=== PATIENT | female | born 1975 | race Caucasian/White ===

== ENCOUNTER 2019-12-07 09:53 | Outpatient (CLI) | payer BC ==
--- NOTE | 2019-12-08 11:03 | MMO ---
Bilateral MAMMO Bilat Diag [facility]. CLINICAL HISTORY: Patient is 44 years old and is seen for screening. The patient has the following family history of breast cancer: mother, at age 60. The patient has no personal history of cancer. The patient has a history of bilateral Implants in November,. VIEWS: The views performed were: bilateral craniocaudal with tomosynthesis and bilateral mediolateral oblique with tomosynthesis. This study has been interpreted with the assistance of computer-aided detection. MAMMOGRAM FINDINGS: The breasts are heterogeneously dense, which could obscure a lesion on mammography. There is a mass seen in the upper-outer region of the right breast. The mass is palpable and corresponds to a 2 cm cyst on US. There are no suspicious masses, suspicious calcifications, or new areas of architectural distortion. IMPRESSION: THERE IS NO MAMMOGRAPHIC EVIDENCE OF MALIGNANCY. A ROUTINE FOLLOW-UP MAMMOGRAM IN 1 YEAR IS RECOMMENDED. THE RESULTS OF THIS EXAM WERE SENT TO THE PATIENT. ACR BI-RADS Category 2 - Benign finding MAMMOGRAPHY NOTE: 1. A negative mammogram report should not delay a biopsy if a dominant of clinically suspicious mass is present. 2. Approximately 10% to 15% of breast cancers are not detected by mammography. 3. Adenosis and dense breasts may obscure an underlying neoplasm. Reported by: VICKEY HENDRICKSON MD Electonically Signed: [id number]
--- NOTE | 2019-12-08 11:29 | ULT ---
RIGHT BREAST ULTRASOUND: Date: 12/08/2019 HISTORY: Palpable mass in the right upper outer breast. FINDINGS: Correlation is made with mammogram of same date. Sonographic evaluation of the region of palpable concern between the 10 and 11 o'clock positions of t he right breast, 8 cm from the nipple, demonstrates a 2.0 cm cyst, corresponding the palpable and harjinder mographic finding. IMPRESSION: BI-RADS Category 2 - Benign findings. Return to annual mammographic screening. POS: OFF
== END 2019-12-07 09:54 | disposition home or self-care (01) ==
LOC: BICMAMMO 09:53
PROVIDERS: ATTEND Student in an Organized Health Care Education/Training Program
DX: N63.10 Unspecified lump in the right breast, unspecified quadrant (principal)
CPT/HCPCS: 77063; 77066; 77067; G0279

== ENCOUNTER 2021-02-06 13:01 | Outpatient (CLI) | payer BC | END 2021-02-06 13:02 | disposition home or self-care (01) | LOC: BICMAMMO 13:01 | PROVIDERS: ATTEND Student in an Organized Health Care Education/Training Program | DX: Z12.31 Encounter for screening mammogram for malignant neoplasm of breast (principal); Z80.3 Family history of malignant neoplasm of breast; Z98.82 Breast implant status | CPT/HCPCS: 77063; 77067 ==

== ENCOUNTER 2022-05-22 12:51 | Outpatient (CLI) | payer BC | END 2022-05-22 12:52 | disposition home or self-care (01) | LOC: BICMAMMO 12:51 | PROVIDERS: ATTEND Student in an Organized Health Care Education/Training Program | DX: Z12.31 Encounter for screening mammogram for malignant neoplasm of breast (principal); Z80.3 Family history of malignant neoplasm of breast; Z98.82 Breast implant status | CPT/HCPCS: 77063; 77067 ==

== ENCOUNTER 2023-05-22 13:15 | Outpatient (CLI) | payer BC | END 2023-05-22 13:16 | disposition home or self-care (01) | LOC: BICMAMMO 13:15 | PROVIDERS: ATTEND Student in an Organized Health Care Education/Training Program | DX: Z12.31 Encounter for screening mammogram for malignant neoplasm of breast (principal); Z80.3 Family history of malignant neoplasm of breast; Z98.82 Breast implant status | CPT/HCPCS: 77063; 77067 ==